=== PATIENT | male | born 1985 | race Caucasian/White ===

== ENCOUNTER → 2018-06-28 17:02 | Outpatient (CLI) | payer MEDICAID, SELFPAY ==
--- NOTE | 2018-06-28 17:07 | RAD_ITS ---
STUDY: X-RAY - CERVICAL SPINE REASON FOR EXAM: Male, 32 years old. Neck and back pain TECHNIQUE: 4 view(s) of the cervical spine were obtained. COMPARISON: None FINDINGS: Normal anterior atlantoaxial articulation. Normal odontoid process. Normal cervical lordosis. Normal vertebral bodies and endplates. Normal disc space heights. The soft tissue structures are unremarkable. RAD/Cerv Spine 2 or 3 Views IMPRESSION: Normal x-ray examination of the visualized cervical spine. Electronically Signed: Carina Toscano MD at 7:28 EDT , Service support ,
--- NOTE | 2018-06-28 17:12 | RAD_ITS ---
STUDY: X-RAY - LUMBAR SPINE REASON FOR EXAM: Male, 32 years old. Back pain TECHNIQUE: 5 view(s) of the lumbar spine were obtained. COMPARISON: None FINDINGS: Normal lumbar lordosis. There is no substantial scoliosis. There is a normal alignment of the vertebrae. Normal vertebral bodies and endplates. Normal disc space heights. The soft tissue structures are unremarkable. RAD/L/S Spine Min 4 Views IMPRESSION: Normal x-ray examination of the lumbar spine. Electronically Signed: George Coles MD at 7:12 EDT , Service support ,
== END ==
PROVIDERS: Family Provider Family Medicine; PCP Family Medicine; Referring Provider Chiropractor; Visit Provider Chiropractor
DX: M99.01 Segmental and somatic dysfunction of cervical region (principal); M99.02 Segmental and somatic dysfunction of thoracic region; M99.03 Segmental and somatic dysfunction of lumbar region
CPT/HCPCS: 72040; 72110

== ENCOUNTER 2019-01-05 12:55 | Emergency (ER) | payer MEDICAID, SELFPAY ==
[2019-01-05 12:56] VITALS: BP 187/106; PULSE 105; RESP 16; TEMP 36.8; O2SAT 96; BMI 34.2
[2019-01-05 14:14] VITALS: BP 157/94; PULSE 67; RESP 20; O2SAT 97
--- NOTE | 2019-01-05 14:19 | ED.RN ---
pain assoiclated with mechanical movment not endurance activity
--- NOTE | 2019-01-05 14:33 | RAD_ITS ---
STUDY: X-RAY - LEFT SHOULDER REASON FOR EXAM: Male, 33 years old. Left shoulder pain TECHNIQUE: 4 view(s) of the shoulder. COMPARISON: None. FINDINGS: Normal glenohumeral articulation. Normal acromioclavicular joint. Normal acromion. Normal humeral head and visualized proximal humerus. The soft tissue structures are unremarkable. Normal visualized pulmonary apex. RAD/Shoulder min 2 Views IMPRESSION: Normal x-ray examination of the shoulder. Electronically Signed: Robin Whelan MD at 14:55 EDT , Service support ,
--- NOTE | 2019-01-05 14:34 | EKG12_ITS ---
Test Reason : UPPER EXTREMITY Blood Pressure : / mmHG Vent. Rate : 094 BPM Atrial Rate : 094 BPM P-R Int : 152 ms QRS Dur : 082 ms QT Int : 344 ms P-R-T Axes : 064 031 033 degrees QTc Int : 430 ms Normal sinus rhythm Normal ECG Confirmed by CELIA REED, CHRISTIAN ([id number]), electronic news gathering editor NEVAEH HERNANDEZ ([id number]) on 01/07/2019 11:06:45 AM Referred By: KING Confirmed By:CHRISTIAN YANG MD
--- NOTE | 2019-01-05 14:34 | ED.VISSUMM ---
- ER Visit Summary Date of Service: 01/05/19 Chief Complaint: [] Left shoulder pain this morning when he woke History of Present Illness: The patient is a 33 M [] he went to bed feeling fine he indicates he woke with shoulder pain anterior shoulder worse with he tries to forward elevate the shoulder but if he keeps his shoulder still, he had no direct trauma to the shoulder, no numbness weakness paresthesias normal activity prior to bedtime, he does report sometimes he sleeps in an awkward fashion where his hand may wrap around his head he believes he did that in addition believes he laid on the left arm in that position, he had no numbness weakness paresthesias no chest pain shortness of breath fever cough indicates he has diabetes is well controlled with diet but again no history of CT PE DVT or cardiovascular disease he prefers to hold the arm close to his chest Physical Examination: [] Vital signs are unremarkable afebrile Holding left upper extremity close to his chest General, no distress resting comfortably HEENT is generally unremarkable The neck is supple no adenopathy Cardiovascular, regular rate and rhythm Lungs, clear bilateral Abdomen, soft nontender Extremities, no clubbing cyanosis or edema, he has pain to palpation over the left anterior shoulder there is no instability deformity, he can forward elevate but this causes discomfort his arm elbow forearm wrist and hand function are completely unremarkable normal pulses are symmetric he has no neck pain and again hand function is normal Neurologic, awake alert answering questions appropriately moving all 4 extremities Test Results: [] Emergency Department Course and Treatment: [] The differentials extensive indicates he most likely slept in an awkward position as when he went to bed he was not ill in any way x-rays Toradol EKG Treatment Plan: [] he is EKG shows a sinus rhythm nothing acute left shoulder x-ray negative for all per radiology explained to him the concept of a ligamentous rotator cuff AC joint issue causing his symptoms he understands these with a sling Naprosyn for pain and to follow-up with his doctors in the next few days and return for change in symptoms Disposition: [] Home stable Impression: [] Left shoulder injury This note was generated with [employer] software. It may contain incorrect words, spelling, and punctuation that were not noted in review of the chart prior to signing ED Disposition - Plan for ED Patient: Instructions: ED Sprain AC Joint, ED Torn Rotator Cuff Prescriptions: Naproxen [Naprosyn] 500 mg PO BID PRN #20 tab Referrals: Gurdeep Andrea DO [Primary Care Provider] -
--- NOTE | 2019-01-05 14:37 | ED.DCSUM_ITS ---
- ER Visit Summary Date of Service: 01/05/19 Chief Complaint: [] Left shoulder pain this morning when he woke History of Present Illness: The patient is a 33 M [] he went to bed feeling fine he indicates he woke with shoulder pain anterior shoulder worse with he tries to forward elevate the shoulder but if he keeps his shoulder still, he had no direct trauma to the shoulder, no numbness weakness paresthesias normal activity prior to bedtime, he does report sometimes he sleeps in an awkward fashion where his hand may wrap around his head he believes he did that in addition believes he laid on the left arm in that position, he had no numbness weakness paresthesias no chest pain shortness of breath fever cough indicates he has diabetes is well controlled with diet but again no history of SC PE DVT or cardiovascular disease he prefers to hold the arm close to his chest Physical Examination: [] Vital signs are unremarkable afebrile Holding left upper extremity close to his chest General, no distress resting comfortably HEENT is generally unremarkable The neck is supple no adenopathy Cardiovascular, regular rate and rhythm Lungs, clear bilateral Abdomen, soft nontender Extremities, no clubbing cyanosis or edema, he has pain to palpation over the left anterior shoulder there is no instability deformity, he can forward elevate but this causes discomfort his arm elbow forearm wrist and hand function are completely unremarkable normal pulses are symmetric he has no neck pain and again hand function is normal Neurologic, awake alert answering questions appropriately moving all 4 extremities Test Results: [] Emergency Department Course and Treatment: [] The differentials extensive indicates he most likely slept in an awkward position as when he went to bed he was not ill in any way x-rays Toradol EKG Treatment Plan: [] he is EKG shows a sinus rhythm nothing acute left shoulder x- ray negative for all per radiology explained to him the concept of a ligamentous rotator cuff AC joint issue causing his symptoms he understands these with a sling Naprosyn for pain and to follow-up with his doctors in the next few days and return for change in symptoms Disposition: [] Home stable Impression: [] Left shoulder injury This note was generated with [employer] software. It may contain incorrect words, spelling, and punctuation that were not noted in review of the chart prior to signing ED Disposition - Plan for ED Patient: Instructions: ED Sprain AC Joint, ED Torn Rotator Cuff Prescriptions: Naproxen [Naprosyn] 500 mg PO BID PRN #20 tab Referrals: Gurdeep Andrea DO [Primary Care Provider] -
[2019-01-05] MEDS: Ketorolac 60 MG/2 ML Vial IM (15:22)
== END 2019-01-05 15:51 | disposition home or self-care (01) ==
LOC: ED 15:10
PROVIDERS: Emergency Provider Emergency Medicine; Family Provider Family Medicine; PCP Family Medicine
DX: S49.92XA Unspecified injury of left shoulder and upper arm, initial encounter (principal); X58.XXXA Exposure to other specified factors, initial encounter; Y93.84 Activity, sleeping; Y92.9 Unspecified place or not applicable; Y99.9 Unspecified external cause status; E11.9 Type 2 diabetes mellitus without complications; Z79.84 Long term (current) use of oral hypoglycemic drugs; Z79.899 Other long term (current) drug therapy
CPT/HCPCS: 73030; 93005; 96372; 99283

== ENCOUNTER 2019-12-20 14:20 | Emergency (ER) | payer OTHER, SELFPAY ==
[2019-12-20 14:21] VITALS: BP 151/97; PULSE 86; RESP 20; TEMP 36.6; O2SAT 99; BMI 35.6
--- NOTE | 2019-12-20 14:37 | EKG12_ITS ---
Test Reason : Blood Pressure : / mmHG Vent. Rate : 087 BPM Atrial Rate : 087 BPM P-R Int : 148 ms QRS Dur : 088 ms QT Int : 346 ms P-R-T Axes : 055 025 031 degrees QTc Int : 416 ms Normal sinus rhythm with sinus arrhythmia Normal ECG Confirmed by CELIA REED, CHRISTIAN ([id number]), subeditor ZITA STEVENS ([id number]) on 12/23/2019 10:53:48 AM Referred By: CELSO Confirmed By:CHRISTIAN YANG MD
--- NOTE | 2019-12-20 14:38 | CT_ITS ---
STUDY: CTA CHEST REASON FOR EXAM: Male, 33 years old. SOB, FEVER, SORE THROAT, CP RADIATION DOSAGE (If Supplied By Facility): CTDIvol = ( 11.43 ) mGy, DLP = ( 521.50 ) mGycm TECHNIQUE: The examination was performed with the intravenous administration of IV 100mL [id number]. Post-processing of the angiographic images was performed, with multiplanar reformation and 3D reconstruction. Individualized dose optimization techniques were used for this CT. COMPARISON: None. FINDINGS: Small benign-appearing bilateral axillary lymph nodes. Normal enhancement of the main pulmonary artery and right and left pulmonary arteries. Normal enhancement of the bilateral peripheral pulmonary arteries. There is no demonstrated pulmonary embolism. Normal thoracic aorta and visualized great vessels. There is no demonstrated aortic dissection. Normal heart and pericardium. Normal mediastinum. Normal hilar regions. Normal visualized trachea and bronchi. The lungs are well expanded. Normal pulmonary parenchyma. Normal pleura. Normal chest wall structures. Normal osseous structures. Normal visualized upper abdomen. CT/CTA Chest W/WO Contrast IMPRESSION: Normal CTA chest examination, without a demonstrated pulmonary embolism or arterial dissection. Electronically Signed: Daryl Quintero, at 15:37 EDT , Service support ,
--- NOTE | 2019-12-20 14:40 | ED.DCSUM_ITS ---
History of Present Illness Informant: Patient Onset: Days, Weeks Context: Gradual Onset Timing: Continuous Current Severity: Moderate Maximum Severity: Severe Narrative: The patient is a 33-year-old male with history of [id number] diabetes that presents to the emergency department with cough, sore throat, chills, myalgias. Patient states his been going on for about 10 days. He states he is completed 2 rounds of antibiotics. He is tested negative for strep and flu. He states he thought that he was getting better, but over the past 3 days his symptoms have worsened. He feels like his heart is racing. He states he gets out of breath rather acutely. He describes myalgias and arthralgias. He denies any travel or recent sick contacts. He states that he called his primary care today, who referred him to the emergency department. Prior similar symptoms: No Recent Illness/Hospitalization: No <Gene Smith - Last Filed: 12/20/19 14:42> <Jaden Card - Last Filed: 12/20/19 16:05> Chief Complaint: Cough Past Medical History Prior records reviewed: Yes Past Medical History: - - [id number] diabetes Surgical History: noncontributory Smoking Status: Never smoker <Gene Smith - Last Filed: 12/20/19 14:42> <Jaden Card - Last Filed: 12/20/19 16:05> - Allergies and Home Meds Allergies/Adverse Reactions: Allergies No Known Allergies Allergy (Verified 12/20/19 14:20) Primary Care Physician: Gurdeep Andrea DO [COURTESY STAFF PHYSICIAN] - Review of Systems General: Reports: Chills. Denies: Fever, Sweats Eyes: Denies: Visual changes - bilaterally, Diplopia ENT: Denies: Rhinorrhea, Sore throat Cardiovascular: Reports: Palpitations. Denies: Chest pain Respiratory: Reports: Dyspnea, Cough, Dyspnea on exertion Gastrointestinal: Denies: Abdominal pain, Nausea, Vomiting, Diarrhea, Melena, Hematochezia Genitourinary: Denies: Dysuria, Hematuria, Frequency Musculoskeletal: Denies: Back pain, Extremity Pain Skin: Denies: Rash, Wounds Neurological: Denies: Headache, Weakness, Numbness <Gene Smith - Last Filed: 12/20/19 14:42> Physical Exam Vital Signs/Narrative: Vital Signs Temp Pulse Resp BP Pulse Ox 12/20/19 14:21 97.8 F 86 20 H 151/97 H 99 Inital Vital Signs reviewed: Yes General: Well nourished, Well developed, No Acute Distress Head: Normocephalic, Atraumatic Eyes: Perrl, EOMI ENT: Moist mucous membranes, No rhinorrhea Neck: Supple, Nontender Cardiovascular: Regular rate, Regular rhythm, No murmurs Respiratory: No distress, CTA bilaterally, Chest nontender Abdomen: Soft, Nontender, Nondistended, Normal bowel sounds Back: Nontender, Normal Inspection Extremities: Nontender, No edema Skin: Normal color, No rash Neurological: Alert, Oriented x3, Cranial nerves II-XII grossly intact, Normal Strength, Normal Sensation Psychological: Normal affect, Normal Mood <Gene Smith - Last Filed: 12/20/19 14:42> Vital Signs/Narrative: Vital Signs Temp Pulse Resp BP Pulse Ox 12/20/19 15:59 87 18 156/141 H 97 12/20/19 15:09 90 18 189/115 H 96 12/20/19 14:59 97.8 F 86 20 H 151/97 H 99 12/20/19 14:21 97.8 F 86 20 H 151/97 H 99 <Jaden Card - Last Filed: 12/20/19 16:05> Diagnostic/Tx/Re-eval - Medical Decision Making The patient presents with cough, fever, myalgias, and exertional dyspnea. The patient is going to undergo metabolic work-up. I do feel the most appropriate test would be a CT of his chest to rule out pulmonary embolus or pneumonia given his persistent symptoms. This will be reevaluated once completed. <Gene Smith - Last Filed: 12/20/19 14:42> - Medical Decision Making Turned over to me. CT angiogram negative. No groundglass infiltrates to suggest coronavirus. No leukopenia on his CBC. Troponin negative. No cardiomegaly. No fever. Unlikely myocarditis or pericarditis. He looks well. Not in distress. He is comfortable going home at this point. His pulse oximetry is 99% on room air and he is not tachypneic. I feel that he can safely be discharged home. He will follow-up closely with his doctor and possibly with a food beverage supervisor if not improving. He will return here if worse. <Jaden Card - Last Filed: 12/20/19 16:05> ED Disposition <Gene Smith - Last Filed: 12/20/19 14:42> <Jaden Card - Last Filed: 12/20/19 16:05> - Plan for ED Patient: Disposition: Home or Assisted Living Diagnosis: Cough Instructions: BRONCHITIS, No Antibiotic (Adult) Referrals: Gurdeep Andrea DO [COURTESY STAFF PHYSICIAN] -
[2019-12-20] MEDS: 0.9% Normal Saline 1,000 ML 1000 ML IV (14:55)
[2019-12-20 14:59] VITALS: BP 151/97; PULSE 86; RESP 20; TEMP 36.6; O2SAT 99
[2019-12-20 15:09] VITALS: BP 189/115; PULSE 90; RESP 18; O2SAT 96
[2019-12-20 15:11] LABS: Absolute Lymphocyte Count 3.22 X10^3/uL (0.83-4.51); Absolute Neutrophil Count 9.1 X10^3/uL (2.0-7.7); Basophil# 0.03 X10^3/uL; Basophil% 0.2 % (0-1); Eosinophils% 0.8 % (0-5); Hematocrit 48.9 % (40-54); Hemoglobin 16.5 g/dL (13.0-16.5); Lymphocyte # 3.22 X10^3/ul (4.0); Lymphocyte % 24.2 % (19-41); Mean Corp Hgb Conc 33.7 g/dL (32-36); Mean Corpuscular Volume 82.9 fL (80-94); Mean Platelet Vol. 11.5 fl (6.2-12.0); NRBC Flagged by Analyzer 0 % (0-5); Neutrophil # 9.05 X10^3/uL (2.7-7.7); Platelet Count 230 K/mm3 (150-450); RBC Distribution Width SD 36.2 fl (35.1-43.9); White Blood Count 13.3 K/mm3 (4.4-11.0)
[2019-12-20 15:31] LABS: ALB/GLOB Ratio 0.8 RATIO (0.9-2.4); AST(SGOT) 21 U/L (15-37); Alanine Aminotransfer ALT/SGPT 41 U/L (16-61); Albumin, Serum 3.7 g/dL (3.2-5.0); Alkaline Phosphatase 85 U/L (45-117); Anion Gap 7 (5-15); BUN 11 mg/dL (7-18); BUN/Creat Ratio 13.3 RATIO (10-20); Calcium,Total 9.3 mg/dL (8.5-10.1); Chloride 102 mmol/L (98-107); Creatinine, Serum 0.82 mg/dL (0.70-1.30); EST Glomerular Filtration Rate 113 mL/min (>60); Est Glom Filt Rate - Afr Amer 137 mL/min (>60); Estimated Creatinine Clearance 143.45 ml/min; Globulin 4.4 g/dL (2.2-4.2); Glucose 296 mg/dL (74-106); Potassium 3.7 mmol/L (3.5-5.1); Protein, Total 8.1 g/dL (6.4-8.2); Sodium Level 135 mmol/L (136-145)
[2019-12-20 15:34] LABS: Lactic Acid 1.7 mmol/L (0.4-1.9)
[2019-12-20 15:59] VITALS: BP 156/141; PULSE 87; RESP 18; O2SAT 97
[2019-12-20 16:07] VITALS: BP 187/105; PULSE 88; RESP 18; O2SAT 97
[2019-12-20 16:30] VITALS: BP 161/89; PULSE 86; RESP 17; O2SAT 98
== END 2019-12-20 16:31 | disposition home or self-care (01) ==
PROVIDERS: Emergency Medicine; Emergency Provider Emergency Medicine; PCP Student in an Organized Health Care Education/Training Program
DX: R05 Cough (principal); E11.9 Type 2 diabetes mellitus without complications; Z79.84 Long term (current) use of oral hypoglycemic drugs
CPT/HCPCS: 71275; 80053; 83605; 84484; 85025; 87040; 93005; 96360; 96361; 99284; J7030; Q9967